=== PATIENT | female | born 1970 ===

== ENCOUNTER 2021-07-31 06:07 | Day surgery (SDC) | payer OTHER ==
[~2021-07-31] VITALS: Ht 177.8 cm; Wt 79.4 kg
[~2021-07-31 06:07] MED LIST: COZAAR25 MG PO
[2021-07-31] MEDS ORDERED: MIRALAX17 GM PO (09:06)
[2021-07-31] MEDS ORDERED: NEURONTIN300 MG PO (09:06)
[2021-07-31] MEDS ORDERED: ULTRAM50 MG PO (09:06)
[2021-07-31] MEDS ORDERED: TYLENOL ARTHRI650 MG PO (09:06)
== END 2021-07-31 14:20 | disposition home or self-care (01) ==
LOC: CIR.AMB 06:07
PROVIDERS: ATTEND Surgery
DX: K80.10 Calculus of gallbladder with chronic cholecystitis without obstruction (principal); E66.9 Obesity, unspecified